=== PATIENT | male | born 1970 | race Caucasian/White ===

== ENCOUNTER 2018-09-03 14:48 | Outpatient (CLI) | payer BC ==
--- NOTE | 2018-09-03 16:08 | RAD ---
LEFT HUMERUS TWO VIEWS' 09/03/18 HISTORY: Pain. COMPARISON: None. FINDINGS: No fracture. No cortical irregularity or periosteal reaction. IMPRESSION: Unremarkable two views left humerus. POS: [facility]
== END 2018-09-03 14:49 | disposition home or self-care (01) ==
LOC: SCSRAD 14:48
PROVIDERS: ATTEND Family Medicine
DX: M25.512 Pain in left shoulder (principal)